=== PATIENT | female | born 1980 | race Caucasian/White ===

== ENCOUNTER 2018-01-19 08:37 | Inpatient (IN) | payer OTHER ==
[~2018-01-19] VITALS: Ht 165.1 cm; Wt 83.4 kg
[~2018-01-19 08:37] MED LIST: BIRTH CONTROL PO; FLEXERIL10 MG PO; KEFLEX500 MG PO; MIRALAX255 GM PO; MUCINEX D ER T1 EACH PO; NAPROSYN500 MG PO; NASONEX17 GM BOTH NARES; PEPCID40 MG PO; PROAIR HFA8.5 GM IH; PROVENTIL,200 INHALA IH; ZOFRAN4 MG PO
[2018-01-19 09:01] LABS: HEMATOCRIT 38.1 % (36.0-46.0); HEMOGLOBIN 13.1 G/DL (11.9-15.5); MCH 28.5 PG (29.0-34.0); MCHC 34.4 G/DL (30.0-36.0); PLATELET COUNT 326 K/uL (156-360); RBC DIS.WIDTH-CV 11.9 % (11.8-14.6); RBC DIS.WIDTH-SD 35.8 % (39-53); RED BLOOD COUNT 4.59 M/uL (3.80-5.20)
[2018-01-19 09:05] LABS: APPEARANCE SL.HAZY ((CLEAR)); BILIRUBIN NEGATIVE; BLOOD NEGATIVE; COLOR YELLOW ((YELLOW)); GLUCOSE (STRIP) NEGATIVE; KETONES NEGATIVE; LEUKOCYTES NEGATIVE; NITRITE NEGATIVE; PROTEIN (STRIP) NEGATIVE; SPECIFIC GRAVITY 1.016 (1.000-1.030); UROBILINOGEN 0.2 MG/DL (0.2-1.0)
[2018-01-19 09:10] LABS: BACTERIA RARE /HPF; EPITHELIAL CELLS RARE /HPF; MUCUS TRACE /LPF; UCUL ADDED? NO; WHITE BLOOD CELLS 0-5 /HPF (0-5)
[2018-01-19 09:11] LABS: ALBUMIN 4.3 g/dL (3.2-4.8); CHLORIDE 107 mEq/L (99-109); SODIUM 140 mEq/L (136-147)
[2018-01-19 09:13] LABS: GLUCOSE 140 mg/dL (70-99)
[2018-01-19 09:15] LABS: TOTAL BILIRUBIN 1.8 mg/dL (0.0-1.0)
[2018-01-19 09:17] LABS: ALKALINE PHOSPHATASE 154 IU/L (3-129); GFR ESTIMATE (CALCULATED) > 59 mL/min/
[2018-01-19 09:18] LABS: UREA NITROGEN (BUN) 11 mg/dL (9-23)
[2018-01-19 09:19] LABS: AST (GOT) 552 IU/L (2-34)
[2018-01-19 09:20] LABS: ALT (GPT) 328 IU/L (3-49)
[2018-01-19 09:26] LABS: QUANTITATIVE HCG < 4.0 MIU/ML
[2018-01-19 11:16] LABS: LIPASE 33 U/L (1.0-51.0)
[2018-01-19] MEDS ORDERED: MOTRIN IB200 MG PO (13:00)
[2018-01-19] MEDS ORDERED: FLONASE16 G1 BOTH NARES (13:00)
[2018-01-19] MEDS ORDERED: DICLOFENAC POTA50 MG PO (13:01)
[2018-01-19 13:05] LABS: AMPHETAMINE NEGATIVE (500 ng/mL); BARBITURATES NEGATIVE (200 ng/mL); BENZODIAZEPINES NEGATIVE (150 ng/mL); BUPRENORPHINE NEGATIVE (10 ng/mL); COCAINE NEGATIVE (150 ng/mL); METHADONE NEGATIVE (200 ng/mL); METHAMPHETAMINE NEGATIVE (500 ng/mL); OPIATES (MORPHINE) NEGATIVE (100 ng/mL); OXYCODONE NEGATIVE (100 ng/mL); PHENCYCLIDINE NEGATIVE (25 ng/mL); PROPOXYPHENE NEGATIVE (300 ng/mL); THC CANNABINOIDS NEGATIVE (50 ng/mL); TRICYCLIC ANTIDEPRESSANTS NEGATIVE (300 ng/mL)
[2018-01-19 13:40] LABS: HEPATITIS B SURFACE ANTIGEN Nonreactive; HEPATITIS C ANTIBODY Nonreactive
[2018-01-19 13:41] LABS: ANTI-HEPATITIS A VIRUS (IGM) Nonreactive
[2018-01-19 13:42] LABS: ANTI-HEPATITIS B CORE (IGM) Nonreactive
[2018-01-19 14:30] LABS: HEPATITIS B SURFACE ANTIGEN Nonreactive
[2018-01-19 14:31] LABS: ANTI-HEPATITIS A VIRUS (IGM) Nonreactive; HEPATITIS C ANTIBODY Nonreactive
[2018-01-19 14:33] LABS: ANTI-HEPATITIS B CORE (IGM) Nonreactive
[2018-01-19 14:34] LABS: HIV-1/2 AB/AG COMBO Nonreactive
[2018-01-19 15:19] VITALS: BP 122/76
[2018-01-19 15:46] LABS: ACETAMINOPHEN (TYLENOL) < 10 MCG/ML (10-30); SALICYLATE < 3.0 MG/DL (15-30)
[2018-01-19 17:16] LABS: DIRECT BILIRUBIN 0.8 mg/dL (0.0-0.3)
[2018-01-19 19:58] VITALS: BP 113/64
[2018-01-19 23:15] VITALS: BP 107/62
[2018-01-20 04:08] VITALS: BP 98/57
[2018-01-20 05:53] LABS: BASOPHIL (%) 1.2 % (0-1); BASOPHIL COUNT 0.1 K/uL (0-0.1); EOSINOPHIL (%) 4.9 % (0-5); EOSINOPHIL COUNT 0.3 K/uL (0-0.3); HEMOGLOBIN 11.5 G/DL (11.9-15.5); IMMATURE GRANULOCYTE (%) 0.3 % (0.0-0.7); LYMPHOCYTE (%) 33.6 % (15-42); MCHC 33.8 G/DL (30.0-36.0); MCV 85.6 FL (83-99); MONOCYTE (%) 8.8 % (3-12); MONOCYTE COUNT 0.5 K/uL (0-0.8); NEUTROPHIL (%) 51.2 % (45-76); PLATELET COUNT 279 K/uL (156-360); RBC DIS.WIDTH-CV 12.2 % (11.8-14.6); RBC DIS.WIDTH-SD 37.5 % (39-53); RED BLOOD COUNT 3.97 M/uL (3.80-5.20); WHITE BLOOD COUNT 5.9 K/uL (4.1-10.2)
[2018-01-20 06:16] LABS: ALBUMIN 3.4 G/DL (3.2-4.8); ALKALINE PHOSPHATASE 168 IU/L (3-129); ALT (GPT) 349 IU/L (3-49); AST (GOT) 313 IU/L (2-34); CHLORIDE 108 MEQ/L (99-109); CREATININE 0.9 MG/DL (0.6-1.3); DIRECT BILIRUBIN 0.7 mg/dL (0.0-0.3); GFR ESTIMATE (CALCULATED) > 59 mL/min/; POTASSIUM 3.7 MEQ/L (3.7-5.4); SODIUM 143 MEQ/L (136-147); TOTAL BILIRUBIN 1.6 MG/DL (0.0-1.0); TOTAL PROTEIN 5.5 G/DL (6.4-8.3); UREA NITROGEN (BUN) 6 mg/dL (9-23)
[2018-01-20 06:17] LABS: GLUCOSE 102 mg/dL (70-99)
[2018-01-20 08:18] VITALS: BP 116/72
[2018-01-20 11:53] VITALS: BP 116/71
[2018-01-20 16:16] VITALS: BP 128/78
[2018-01-20 19:20] VITALS: BP 107/60
[2018-01-20 23:39] VITALS: BP 128/72
[2018-01-21 03:20] VITALS: BP 134/83
[2018-01-21 07:01] LABS: HEMATOCRIT 33.4 % (36.0-46.0); HEMOGLOBIN 11.6 G/DL (11.9-15.5); MCH 29.2 PG (29.0-34.0); MCHC 34.7 G/DL (30.0-36.0); MCV 84.1 FL (83-99); PLATELET COUNT 281 K/uL (156-360); RBC DIS.WIDTH-CV 11.8 % (11.8-14.6); RBC DIS.WIDTH-SD 36.1 % (39-53); RED BLOOD COUNT 3.97 M/uL (3.80-5.20); WHITE BLOOD COUNT 15.4 K/uL (4.1-10.2)
[2018-01-21 07:29] LABS: ALBUMIN 3.6 G/DL (3.2-4.8); ALKALINE PHOSPHATASE 177 IU/L (3-129); ALT (GPT) 224 IU/L (3-49); CHLORIDE 107 MEQ/L (99-109); CREATININE 0.9 MG/DL (0.6-1.3); GFR ESTIMATE (CALCULATED) > 59 mL/min/; GLUCOSE 138 mg/dL (70-99); POTASSIUM 3.6 MEQ/L (3.7-5.4); SODIUM 141 MEQ/L (136-147); TOTAL PROTEIN 5.5 G/DL (6.4-8.3); UREA NITROGEN (BUN) 6 mg/dL (9-23)
[2018-01-21 07:30] LABS: AST (GOT) 94 IU/L (2-34); TOTAL BILIRUBIN 0.6 MG/DL (0.0-1.0)
[2018-01-21 08:00] VITALS: BP 146/75
[2018-01-21 11:06] VITALS: BP 147/68
[2018-01-21 12:29] LABS: LIPASE > 6000 U/L (1.0-51.0)
[2018-01-21 13:48] LABS: Neutrophil Cytoplasmic Aby Negative (Negative)
[2018-01-21 17:12] VITALS: BP 128/67
[2018-01-21 19:54] VITALS: BP 116/70
[2018-01-21 23:45] VITALS: BP 132/78
[2018-01-22 04:30] VITALS: BP 115/68
[2018-01-22 05:25] LABS: HEMOGLOBIN 10.3 G/DL (11.9-15.5); MCH 28.1 PG (29.0-34.0); MCHC 33.2 G/DL (30.0-36.0); MCV 84.7 FL (83-99); PLATELET COUNT 260 K/uL (156-360); RBC DIS.WIDTH-SD 36.7 % (39-53); RED BLOOD COUNT 3.66 M/uL (3.80-5.20); WHITE BLOOD COUNT 11.7 K/uL (4.1-10.2)
[2018-01-22 05:51] LABS: ALBUMIN 3.3 G/DL (3.2-4.8); ALKALINE PHOSPHATASE 151 IU/L (3-129); ALT (GPT) 145 IU/L (3-49); CHLORIDE 109 MEQ/L (99-109); CREATININE 0.8 MG/DL (0.6-1.3); GFR ESTIMATE (CALCULATED) > 59 mL/min/; GLUCOSE 118 mg/dL (70-99); LIPASE 510 U/L (1.0-51.0); POTASSIUM 3.5 MEQ/L (3.7-5.4); SODIUM 143 MEQ/L (136-147); TOTAL BILIRUBIN 0.5 MG/DL (0.0-1.0); TOTAL PROTEIN 5.4 G/DL (6.4-8.3); UREA NITROGEN (BUN) 3 mg/dL (9-23)
[2018-01-22 05:59] LABS: AST (GOT) 40 IU/L (2-34)
[2018-01-22 08:18] VITALS: BP 116/67
[2018-01-22 12:16] VITALS: BP 131/78
[2018-01-22 20:01] VITALS: BP 130/71
[2018-01-23 00:39] VITALS: BP 123/69
[2018-01-23 04:39] VITALS: BP 123/67
[2018-01-23 05:33] LABS: HEMATOCRIT 32.8 % (36.0-46.0); HEMOGLOBIN 11.2 G/DL (11.9-15.5); MCH 28.7 PG (29.0-34.0); MCHC 34.1 G/DL (30.0-36.0); MCV 84.1 FL (83-99); PLATELET COUNT 284 K/uL (156-360); RBC DIS.WIDTH-CV 11.7 % (11.8-14.6); RBC DIS.WIDTH-SD 35.3 % (39-53)
[2018-01-23 05:57] LABS: CHLORIDE 103 MEQ/L (99-109); CREATININE 0.8 MG/DL (0.6-1.3); GFR ESTIMATE (CALCULATED) > 59 mL/min/; GLUCOSE 99 mg/dL (70-99); MAGNESIUM 1.8 mg/dl (1.3-2.7); POTASSIUM 4.1 MEQ/L (3.7-5.4); SODIUM 140 MEQ/L (136-147); UREA NITROGEN (BUN) 6 mg/dL (9-23)
[2018-01-23 08:00] VITALS: BP 141/68
[2018-01-23] MEDS ORDERED: ROXICODONE5 MG PO (09:36)
[2018-01-23 11:48] VITALS: BP 141/83
[2018-01-23] MEDS ORDERED: ZOFRAN8 MG PO (13:48)
[2018-01-23 15:42] VITALS: BP 127/76
[2018-01-23 16:49] LABS: ALBUMIN 3.6 G/DL (3.2-4.8); ALKALINE PHOSPHATASE 178 IU/L (3-129); ALT (GPT) 122 IU/L (3-49); AST (GOT) 31 IU/L (2-34); TOTAL BILIRUBIN 0.6 MG/DL (0.0-1.0); TOTAL PROTEIN 5.7 G/DL (6.4-8.3)
[2018-01-23 17:08] LABS: DIRECT BILIRUBIN 0.2 mg/dL (0.0-0.3)
== END 2018-01-23 17:26 | disposition home or self-care (01) | DRG 417 ==
LOC: EME 08:37 → 3EAST 12:42 → EDOF 12:42 → ENRESERV 12:43 → EDOF 13:02 → ENRESERV 13:49 → 3EAST 14:53
PROVIDERS: Internal Medicine; Internal Medicine Gastroenterology; Physician Assistant; Physician Assistant Surgical
DX: K80.11 Calculus of gallbladder with chronic cholecystitis with obstruction (principal); K80.43 Calculus of bile duct with acute cholecystitis with obstruction; K66.0 Peritoneal adhesions (postprocedural) (postinfection); K85.90 Acute pancreatitis without necrosis or infection, unspecified; R74.0 Nonspecific elevation of levels of transaminase and lactic acid dehydrogenase [LDH]; E87.6 Hypokalemia; J45.20 Mild intermittent asthma, uncomplicated; Z87.442 Personal history of urinary calculi
CPT/HCPCS: 74181; 74328; 76705; 80048; 80053; 80074; 80076; 81003; 82248; 83690; 83735; 84702; 85025; 85027; 86021 90; 86038; 87081; 87389; 88304; 99281; 99285; C1726; C1757; C1769; G0480; J0330; J0696; J1100; J1650; J1885; J2250; J2270; J2405; J2710; J2765; J3010; J3480; J7030; J7042